=== PATIENT | female | born 1970 | race Caucasian/White ===

== ENCOUNTER 2021-11-22 10:00 | Outpatient (RCR) | payer MEDICAID, SELFPAY | END 2022-02-21 16:21 | disposition home or self-care (01) | PROVIDERS: PCP Family Medicine; Visit Provider Family Medicine | DX: M50.30 Other cervical disc degeneration, unspecified cervical region (principal); M48.03 Spinal stenosis, cervicothoracic region; M62.81 Muscle weakness (generalized); Z51.89 Encounter for other specified aftercare | CPT/HCPCS: 97032; 97110; 97112; 97140 ==

== ENCOUNTER 2022-04-12 07:52 | Emergency (ER) | payer MEDICAID, SELFPAY ==
[2022-04-12] VITALS (12 sets, daily range): BP systolic 107–139; BP diastolic 56–78; PULSE 72–98; RESP 11–20; TEMP 36.8; O2SAT 96–99; BMI 22.0
--- NOTE | 2022-04-12 08:21 | ED_ITS ---
HPI - Extremity Injury (Upper) General Chief Complaint: Extremity Pain/Injury, Upper Stated Complaint: fall/right arm injury Time Seen by Provider: 04/12/22 08:16 History of Present Illness HPI narrative: this 51-year-old female comes in with an injury to her right forearm. Just prior to arrival she slipped and fell in the garage and landed on her right forearm. She has a deformity in the distal portion of the right forearm states that she heard a crack at the time of the injury per she denies having any other injury. She did not hit her head or have loss of consciousness. Related Data Home Medications Medication Instructions Recorded Confirmed cyclobenzaprine 10 mg tablet 10 mg PO HS 04/12/22 04/12/22 lidocaine 5 % topical patch patch 04/12/22 lisdexamfetamine 40 mg capsule 40 mg PO DAILY 04/12/22 04/12/22 (Vyvanse) magnesium oxide 400 mg (241.3 mg 400 mg PO DAILY 04/12/22 04/12/22 magnesium) tablet omeprazole 40 mg capsule,delayed 40 mg PO DAILY 04/12/22 04/12/22 release rizatriptan 10 mg tablet 10 mg PO DAILY 04/12/22 04/12/22 sertraline 100 mg tablet mg 04/12/22 zolpidem 10 mg tablet mg 04/12/22 Previous Rx's Medication Instructions Recorded hydrocodone 5 mg-acetaminophen 325 1 tab PO Q4-6H PRN pain #20 tabs 04/12/22 mg tablet Allergies Allergy/AdvReac Type Severity Reaction Status Date / Time ibuprofen Allergy Verified 04/12/22 08:10 oseltamivir [From Tamiflu] Allergy Hives Verified 04/12/22 08:10 Review of Systems Status of ROS: Reports: 10 or more systems reviewed and unremarkable except as noted in History and below Narrative: Constitutional: No fevers, no weight gain or loss. Eyes: No discharge. No vision changes. HENT: No congestion, no sore throat, no ear pain. Cardiovascular: No chest pain, no palpitations. Respiratory: No shortness of breath, no wheezes, no cough. Gastrointestinal: No abdominal pain, no vomiting, no diarrhea. Genitourinary: No dysuria, no hematuria. Musculoskeletal: right forearm injury as described above. Skin: No rashes, no pruritis. Neurological: No dizziness, weakness, sensory change, speech change. Endo/Heme/Allergies: No bruising or bleeding. No polydipsia. Pysch: no suicidality, no anxiety, no insomnia. All other systems reviewed and are negative. [facility] Social History Smoking Status: Unknown if ever smoked Non-prescribed substance use: denies use Exam Narrative: Exam Narrative: Constitutional: Well-developed, well-nourished, no acute distress. HEENT: Normocephalic, atraumatic. Neck: Normal range of motion. Nontender. Supple. Heart: Regular. No murmurs. Normal rate. Intact distal pulses. Lungs: Clear to auscultation. No chest discomfort. No wheezes, rhonchi, or rales. Abdomen: Normal bowel sounds. Nontender. No rebound tenderness. Genitalia: Deferred. Back: No midline tenderness. Normal range of motion. Extremities: Tenderness in the distal portion of the right forearm. Skin: Intact. No rash. Warm. No erythema or pallor. Neurologic: No altered sensation. No weakness. Alert and oriented. Psychiatric: No suicidality. No anxiety or depression. No insomnia. Nursing notes and vitals signs are reviewed. Const: Vital Signs, click to edit/add: Vital Signs - 24 hr 04/12/22 08:05 04/12/22 09:50 Temperature 98.2 F Pulse Rate [Pulse Oximeter] 87 72 Respiratory Rate 20 Blood Pressure [Le ft Upper Arm] 139/78 Pulse Oximetry 98 98 Oxygen Delivery Me thod Room Air Room Air Course Vital Signs Vital signs: Initial Vital Signs Temperature 98.2 F 04/12/22 08:05 Temperature Source Temporal Artery Scan 04/12/22 08:05 Pulse Rate 87 04/12/22 08:05 Pulse Rhythm 04/12/22 08:05 Respiratory Rate 20 04/12/22 08:05 Blood Pressure 139/78 04/12/22 08:05 Blood Pressure Mean 98 04/12/22 08:05 Pulse Oximetry 98 04/12/22 08:05 Oxygen Delivery Method 04/12/22 08:05 Vital Signs Temperature 98.2 F 04/12/22 08:05 Pulse Rate 87 04/12/22 08:05 Respiratory Rate 20 04/12/22 08:05 Blood Pressure 139/78 04/12/22 08:05 Pulse Oximetry 98 04/12/22 08:05 Oxygen Delivery Method 04/12/22 08:05 Temperature 98.2 F 04/12/22 08:05 Pulse Rate 72 04/12/22 09:50 Respiratory Rate 20 04/12/22 08:05 Blood Pressure 139/78 04/12/22 08:05 Pulse Oximetry 98 04/12/22 09:50 Oxygen Delivery Method 04/12/22 09:50 MDM - Extremity Injury (Upper) MDM Narrative Medical decision making narrative: This patient comes in with an injury to her right wrist. She was initially pointing to her forearm so forearm x-ray was ordered and does show evidence of a wrist fracture. A wrist film then does clarified this with significant displacement of the distal radius both dorsally and medially. The patient received an intramuscular injection of morphine 10 mg but was continuing to have significant discomfort. She then agreed to have a hematoma block which was done using 1% lidocaine. This brought great relief to her pain. The hematoma block was not sufficient pain relief in order to reduce the fracture so anesthesia was contacted and arrangements made with informed consent to do propofol sedation for reduction of the wrist fracture. The patient received 125 mg of propofol intravenously which brought about sufficient sedation. X-ray image post reduction shows satisfactory placement. The patient was placed in a sugar-tong splint and received a sling. She received a prescription for Fraser and arrangements are made for follow-up appointment with orthopedic clinic. Imaging Data XR R Wrist: Radiologist's impression: Comminuted impacted distal right radius fracture with dorsal and radial side deviation deformity. Discharge Plan Discharge Clinical Impression: Fracture of wrist Patient Disposition: Home w/ Parent or Adult Condition: Improved Additional Instructions: Wear splint and sling. Use medication as needed and directed. Follow up with orthopedic clinic as scheduled. Prescriptions: New hydrocodone-acetaminophen 5-325 mg tablet 1 tab PO Q4-6H PRN (Reason: pain) Qty: 20 0RF No Action cyclobenzaprine 10 mg tablet 10 mg PO HS lidocaine 5 % adhesive patch,medicated Label Comments: Apply 1 patch to painful area of skin (dry, clean, and hairless) for up to to 12 hours within 24 hour period. Vyvanse 40 mg capsule 40 mg PO DAILY Label Comments: Take 1 Capsule (40 mg) by mouth once daily. magnesium oxide 400 mg (241.3 mg magnesium) tablet 400 mg PO DAILY omeprazole 40 mg capsule,delayed release(DR/EC) 40 mg PO DAILY Label Comments: TAKE ONE CAPSULE BY MOUTH ONE TIME DAILY rizatriptan 10 mg tablet 10 mg PO DAILY sertraline 100 mg tablet Label Comments: TAKE TWO TABLETS BY MOUTH DAILY zolpidem 10 mg tablet Follow Up/Referrals: Elgin Fregoso MD [Primary Care Provider] - Stand Alone Forms: [employer] [facility] Info Instructions
--- NOTE | 2022-04-12 08:21 | CRLHL7_ITS ---
For Patients: As a result of the Century Cures Act, medical imaging exams and procedure reports are released immediately into your electronic medical record. You may view this report before your referring provider. If you have questions, please contact your health care provider. INDICATION: Fell; pain right forearm. Technique: Two-view study right forearm. Findings: Fracture distal radius with angulation. Suggest obtaining detailed radiographic examination of the right wrist for accurate assessment. Dictated by David Keller MD @ 04/12/2022 8:58:40 AM (Electronically Signed)
[2022-04-12] MEDS: MORPHINE 10 MG/ML inj IM (08:31)
--- NOTE | 2022-04-12 08:46 | CRLHL7_ITS ---
For Patients: As a result of the Cures Act, medical imaging exams and procedure reports are released immediately into your electronic medical record. You may view this report before your referring provider. If you have questions, please contact your health care provider. Indication: Injury Technique: A total of two views of the right breast were acquired. Comparison: None prior to today Findings: Bones: Comminuted impacted fracture the distal right radius. This has dorsal and radial side deviation. Joint spaces: Posttraumatic positive ulnar variance Soft tissues: Soft tissue swelling Impression: Comminuted impacted distal right radius fracture with dorsal and radial side deviation deformity. Dictated by J Carlos Scott MD @ 04/12/2022 9:33:24 AM (Electronically Signed)
[2022-04-12] MEDS: LIDOCAINE 1 % PF 30 ML INJECTION (08:56)
--- NOTE | 2022-04-12 09:03 | ED.NURSE ---
Report received from FABIANA Smith.
--- NOTE | 2022-04-12 10:33 | CRLHL7_ITS ---
For Patients: As a result of the Century Cures Act, medical imaging exams and procedure reports are released immediately into your electronic medical record. You may view this report before your referring provider. If you have questions, please contact your health care provider. Indication: Postreduction Technique: Portable AP view right wrist Comparison: 9:10 a.m. same day IMPRESSION: Interval reduction the displaced fracture of the distal radial metaphysis with improved alignment. Dictated by Dawit Cruz MD @ 04/12/2022 10:56:59 AM (Electronically Signed)
--- NOTE | 2022-04-12 10:36 | ED.NURSE ---
Procedure begins with MD, anesthesia, RT, and imaging/portable xray at bedside.
--- NOTE | 2022-04-12 10:46 | W.ANESCHARGE ---
Anesthesia Charges Start Date/Time Anesthesia Start Date: 04/12/22 Anesthesia Start Time: 10:30 Stop Date/Time Anesthesia Stop Date: 04/12/22 Anesthesia Stop Time: 10:46 Summary Emergency: Yes
[2022-04-12] MEDS: HYDROmorphone 0.5 mg/0.5 ml inj IVP (10:56)
--- NOTE | 2022-04-12 11:00 | ED.NURSE ---
Pt awake and coherent. Soda and applesauce provided, tolerating well.
--- NOTE | 2022-04-12 11:23 | ED.NURSE ---
See Sedation Record for VS.
== END 2022-04-12 11:24 | disposition home or self-care (01) ==
PROVIDERS: Emergency Provider Emergency Medicine Emergency Medical Services; PCP Family Medicine
DX: S52.501A Unspecified fracture of the lower end of right radius, initial encounter for closed fracture (principal); W01.0XXA Fall on same level from slipping, tripping and stumbling without subsequent striking against object, initial encounter
CPT/HCPCS: 01820; 25605; 73090; 73100; 96372; 99140; 99285; 99291; J1170; J2001; J2270; J2704

== ENCOUNTER 2022-04-17 10:33 | Day surgery (SDC) | payer MEDICAID, SELFPAY ==
[2022-04-17 11:01] VITALS: BMI 23.3
[2022-04-17 11:13] VITALS: BP 108/55; PULSE 83; RESP 16; TEMP 37; O2SAT 96
[2022-04-17] MEDS: SODIUM CHLORIDE 0.9 % (FLUSH) 10 ML SYRINGE IVF (11:17)
[2022-04-17] MEDS: LACTATED RINGERS 1000 ML 1,000 ML 100 ML IV ×2 (11:18→13:59)
--- NOTE | 2022-04-17 11:18 | SUR.PREOP ---
patient did a home covid antigen test and took a picture of the results. Picture was shown to me and I visualized 1 line indicating a negative test.
--- NOTE | 2022-04-17 11:45 | CRLHL7_ITS ---
For Patients: As a result of the Cures Act, medical imaging exams and procedure reports are released immediately into your electronic medical record. You may view this report before your referring provider. If you have questions, please contact your health care provider. Indication: right distal radius fracture Technique: Three fluoroscopic images of the right wrist. Fluoroscopic time 18.5 seconds. IMPRESSION: Fluoroscopic guidance for percutaneous fixation of distal radial fracture. Dictated by Dawit Cruz MD @ 04/18/2022 8:51:48 AM (Electronically Signed)
[2022-04-17 12:50] VITALS: BP 125/74; PULSE 78; RESP 16; O2SAT 100
[2022-04-17] MEDS: CEFAZOLIN 2 GM in 0.9 % SODIUM CHLORIDE Mini-bag 100 ML IVPB (12:53)
[2022-04-17 13:00] VITALS: BP 116/62; PULSE 85; RESP 16; O2SAT 100
[2022-04-17] MEDS: MIDAZOLAM HCL 1 MG/ML inj IVP (13:00)
[2022-04-17] MEDS: fentaNYL 100 MCG/2 ML inj IVP (13:00)
--- NOTE | 2022-04-17 13:14 | P.NB_ITS ---
Nerve Block Nerve Block Time Seen by Provider: 12:40 Date Seen: 04/17/22 Type of block requested by surgeon for post-operative analgesia: axillary Side: right Time out performed: Yes Verification of patient name: Yes Verification of date of : Yes Site marking: site marked Name of person performing procedure: Jose Continuous monitoring Was continuous monitoring of O2 sat, B/P, monitor and storage bin tender, recorded every 15 minutes?: Yes Procedure Checklist: sterile prep, needles and gloves Ultrasound guided. Images saved: Yes Medications given in 5ml increments after negative aspiration: Ropivicaine %: 0.5 mL: 10 Needle gauge: 22 and Lidocaine %: 2 mL: 15 Needle gauge: 22 Patient tolerated procedure well: Yes Additional comments: Needle noted adjacent to nerve Block Charges Block Charge (with Pro Fee): Brachial Plexus Use of Ultrasound Machine for Block: Yes- US Guidance/pain block
--- NOTE | 2022-04-17 13:15 | SUR.PREOP ---
TIME?OUT:?1259 PT/Nadia Izquierdo RN/Dr. Jose MDA?VERIFICATION?OF?SURGICAL?SITE right radius,?PROCEDURE,?AND?CONSENT OBTAINED?PRIOR?TO?INVASIVE?PROCEDURE.
[2022-04-17 14:20] VITALS: BP 115/66; PULSE 68; TEMP 36.3; O2SAT 92
--- NOTE | 2022-04-17 14:20 | W.ANESCHARGE ---
Anesthesia Charges Start Date/Time Anesthesia Start Date: 04/17/22 Anesthesia Start Time: 13:22 Stop Date/Time Anesthesia Stop Date: 04/17/22 Anesthesia Stop Time: 14:24 Summary Emergency: No
--- NOTE | 2022-04-17 14:24 | W.ANESCHARGE ---
Anesthesia Charges Start Date/Time Anesthesia Start Date: 04/17/22 Anesthesia Start Time: 13:22 Stop Date/Time Anesthesia Stop Date: 04/17/22 Anesthesia Stop Time: 14:24 Summary Emergency: No
[2022-04-17 14:30] VITALS: BP 109/63; PULSE 68; RESP 16; O2SAT 93
--- NOTE | 2022-04-17 14:32 | P.ORPRC_ITS ---
Procedure Note Date of procedure: 04/17/22 Procedure: PREOPERATIVE DIAGNOSES: 1. Right distal radius fracture, closed, extra-articular, radially and dorsally angulated and displaced 2. Right long finger retained ring POSTOPERATIVE DIAGNOSES: 1. Right distal radius fracture, closed, extra-articular, radially and dorsally angulated and displaced 2. Right long finger retained ring NAME OF OPERATION: 1. Right distal radius closed reduction percutaneous pinning 2. Right long finger ring removal 3. 10262 - intraoperative fluoroscopy up to 1 hour. SURGEON: Allen Butt MD GUEST SERVICE AIDE: Fabio Monreal PA-C - Of note, an legal executive assistant was critical for this case to aide in patient positioning, limb manipulation, pin retraction, closure/dressing, and splinting. ANESTHESIA: Axillary block plus MAC EBL: Less than 2 mL IMPLANTS: [0.062 in K-wire (x3).] TOURNIQUET: None. COMPLICATIONS: None evident INDICATIONS: The patient is a pleasant, 51-year-old female it is who sustained a right wrist injury after a fall. They had difficulty with use of the extremity and deformity. Workup included xrays which revealed an unstable fracture. Given these findings, surgery was recommended to stablize the fracture. Of note, her long finger had a ring around it, metal/gutierrez type ring. This was n ot able to be removed in the emergency department and has been persistent. It is at risk to causing the tourniquet effect on her long finger due to the swelling. Thus indication for removal was present today. PROCEDURE: Following a thorough discussion of risks, benefits, and alternatives, consent was obtained and the operative extremity was marked. The patient was brought to the operating room and placed supine on the operating table. Induction of anesthesia was achieved. Appropriate time out was performed identifying proper patient, site and procedure. 1 g IV Ancef was administered within 1 hour of incision preoperatively. Prior to prep for the CR PP of the distal radius, the long finger ring removal procedure was undertaken. Initially, the finger was wrapped with Iodoform and a silk suture circumferentially. Part of the iodoform was then brought underneath the ring and allowed us to unwrap the out of forearm while severely circling the ring around the finger. Lubrication was also need to help remove this. We were successful. No need to cut the ring. The right upper extremity was prepped and draped in the appropriate sterile fashion using ChloraPrep. Closed reduction with manipulation was performed. C- arm fluoroscopic imaging was obtained intraoperatively to confirm the improved position of the distal radius. The K-wire was selected and utilized initially from distal towards proximal and dorsal to volar after closed reduction was performed. A 2nd K-wire selected and placed in a similar location but further ulnar. Decision for radial styloid pin was confirmed making this the 3rd pin placed aiming from radial to ulnar, distal towards proximal. This allowed good control of the distal radial fracture, and stabilization accordingly. C-arm confirmed the pins to be extra-articular. Betadine-soaked gauze was wrapped around the pin sites, bulky dressing applied, and volar dorsal splint was [id number]. Patient was woken from anesthesia and transferred the PACU in stable condition. PLAN: 1. Elevate operative extremity. 2. Ice, acetominphen or ibuprofen PRN. 3. Percocet for pain as needed. 4. Finger ROM as tolerated. 5. Follow up with me in 10-16 days for wound check and splint removal - maintain betadine gauze. xray with pins in place - 2 views Left wrist.
[2022-04-17 15:17] VITALS: BP 116/70; PULSE 79; RESP 16; O2SAT 96
== END 2022-04-17 15:29 | disposition home or self-care (01) ==
PROVIDERS: PCP Family Medicine; Visit Provider Orthopaedic Surgery Sports Medicine
PROC: (CPT 25575; principal; 2022-04-17 11:45)
DX: S52.551A Other extraarticular fracture of lower end of right radius, initial encounter for closed fracture (principal)
CPT/HCPCS: 25606; 01820; 01830; 64415; 73110; 76000; 76942; A4580; J0690; J2250; J2795; J3010; J7120

== ENCOUNTER 2022-08-01 11:30 | Outpatient (RCR) | payer MEDICAID, SELFPAY | END 2022-10-31 16:47 | disposition home or self-care (01) | PROVIDERS: PCP Family Medicine; Visit Provider Physician Assistant Surgical | DX: Z87.81 Personal history of (healed) traumatic fracture (principal); Z51.89 Encounter for other specified aftercare | CPT/HCPCS: 97110; 97140; 97165; X5282 ==